=== PATIENT | female | born 1945 | race Caucasian/White ===

== ENCOUNTER → 2016-11-21 | Outpatient (REF) | payer MEDICARE, OTHER ==
[2016-11-21 14:58] LABS: MICROSCOPIC INDICATED? MAN YES (NO)
[2016-11-21 15:00] LABS: BACTERIA, URINE NONE SEEN; CALCIUM OXALATE CRYSTALS,URINE SMALL AMOUNT /hpf; MICROSCOPIC EXAM UNSPUN; RBC, URINE 0-1 /hpf (0-3); SQUAMOUS EPITHELIAL CELL URINE NONE SEEN /hpf (SMALL AMT); WBC, URINE 0-1 /hpf (0-3)
[2016-11-21 15:07] LABS: HYALINE CAST, URINE NONE SEEN /lpf (0-1)
== END | disposition home or self-care (01) ==
LOC: M SFHCPLAZ 10:53
PROVIDERS: ATTEND Internal Medicine
DX: M81.0 Age-related osteoporosis without current pathological fracture (principal)

== ENCOUNTER → 2016-11-22 | Outpatient (REF) | payer MEDICARE, OTHER ==
[2016-11-22 12:24] LABS: ALBUMIN 3.9 GM/DL (3.2-5.2); ALBUMIN/GLOBULIN RATIO 1.05 (1.00-1.93); ALKALINE PHOSPHATASE 91 U/L (45-117); ALT/SGPT 37 U/L (12-78); ANION GAP 9 MEQ/L (8-16); AST/SGOT 36 U/L (15-37); BILIRUBIN,TOTAL 0.8 MG/DL (0.2-1.0); BLOOD UREA NITROGEN 16 MG/DL (7-18); CALCIUM LEVEL 8.7 MG/DL (8.8-10.2); CARBON DIOXIDE LEVEL 30 MEQ/L (21-32); CHLORIDE LEVEL 104 MEQ/L (98-107); CHOLESTEROL LEVEL 202 MG/DL (<200); CREATININE FOR GFR 0.82 MG/DL (0.55-1.02); GLOMERULAR FILTRATION RATE > 60.0 (>39); GLUCOSE, FASTING 79 MG/DL (83-110); POTASSIUM SERUM 4.1 MEQ/L (3.5-5.1); SODIUM LEVEL 143 MEQ/L (136-145); TOTAL PROTEIN 7.6 GM/DL (6.4-8.2); TRIGLYCERIDES LEVEL 56 MG/DL (<150)
== END ==
LOC: M LABDRAW1 11:31
PROVIDERS: ATTEND Internal Medicine
DX: M81.0 Age-related osteoporosis without current pathological fracture (principal); E78.00 Pure hypercholesterolemia, unspecified; E55.9 Vitamin D deficiency, unspecified

== ENCOUNTER → 2017-01-20 | Outpatient (REF) | payer MEDICARE, OTHER | LOC: M LAB REF 16:33 | PROVIDERS: ATTEND Physician Assistant | DX: N39.8 Other specified disorders of urinary system (principal); Z79.899 Other long term (current) drug therapy ==

== ENCOUNTER → 2017-04-21 | Outpatient (REF) | payer MEDICARE, OTHER ==
[~2017-04-21] MED LIST: CIPR500T3 PO; ESTR1CRE
== END ==
LOC: M SFHCPLAZ 15:22
PROVIDERS: ATTEND Physician Assistant Medical
DX: B37.3 Candidiasis of vulva and vagina (principal)
CPT/HCPCS: 87070; 87205; G0463

== ENCOUNTER 2017-05-11 09:26 | Emergency (ER) | payer MEDICARE, OTHER ==
[~2017-05-11] VITALS: Ht 157.5 cm; Wt 54.5 kg
[2017-05-11] MEDS ORDERED: ESTR1CRE (09:45)
--- NOTE | 2017-05-11 11:17 | REP ---
CT Head without contrast HISTORY: Ataxia COMPARISON: None Areas of decreased attenuation are present in the periventricular and subcortical white matter. This represents small-vessel ischemic disease. There is no intraparenchymal hemorrhage, acute infarct, mass or midline shift. The ventricular system and cortical sulci are dilated consistent with minimal volume loss. There is no extra cerebral collection. There is no fracture. The visualized sinuses are clear. IMPRESSION: 1. Small vessel ischemic disease. 2. Minimal volume loss. Signed by Osvaldo Arceo MD 05/11/2017 11:09 A
[2017-05-11 11:22] LABS: EOS % 0.7 % (0.0-3.0); LARGE UNSTAINED CELL # 0.1 K/mm3 (0.0-0.4); LYMPH # 1.2 K/mm3 (1.5-4.5); MEAN CORPUSCULAR HEMOGLOBIN 32.6 pg (27.0-33.0); MEAN CORPUSCULAR HGB CONC 34.2 g/dl (32.0-36.5); MEAN CORPUSCULAR VOLUME 95.3 fl (80.0-96.0); MONO # 0.2 K/mm3 (0.0-0.8); MONO % 4.6 % (0.0-5.0); NEUTROPHILS # 2.9 K/mm3 (1.8-7.7); NEUTROPHILS % 64.7 % (36.0-66.0); PLATELET COUNT, AUTOMATED 211 k/mm3 (150-450); RED CELL DISTRIBUTION WIDTH 12.1 % (11.5-14.5); WHITE BLOOD COUNT 4.5 K/mm3 (4.0-10.0)
[2017-05-11 11:37] LABS: ANION GAP 6 MEQ/L (8-16); BLOOD UREA NITROGEN 11 MG/DL (7-18); CALCIUM LEVEL 9.2 MG/DL (8.8-10.2); CARBON DIOXIDE LEVEL 29 MEQ/L (21-32); CHLORIDE LEVEL 107 MEQ/L (98-107); CREATININE FOR GFR 0.73 MG/DL (0.55-1.02); GLOMERULAR FILTRATION RATE > 60.0 (>39); GLUCOSE, FASTING 87 MG/DL (83-110); POTASSIUM SERUM 4.3 MEQ/L (3.5-5.1); SODIUM LEVEL 142 MEQ/L (136-145)
[2017-05-11 12:13] VITALS: BP 139/71
[2017-05-11] MEDS ORDERED: CIPR500T3 PO (12:34)
--- NOTE | 2017-05-11 21:38 | ECGEPIP ---
Stationary ECG Study [place] - ED Test Date: 2017-05-11 Pat Name: BRI STEPHENSON Department: Room: - Gender: F [employer] Hand: antonella : 1945 Requested By: SHAYY ARGUELLO Order Number: [id number] Reading MD: Mariela Jimenez Measurements Intervals [place] Rate: 82 P: 75 AK: 146 QRS: 63 QRSD: 104 T: 89 QT: 383 QTc: 449 Interpretive Statements SINUS RHYTHM [id number] ABNORMALITY NO PRIOR FOR COMPARISON Electronically Signed On 05-11-2017 21:38:30 EDT by Mariela Jimenez
== END 2017-05-11 12:42 | disposition home or self-care (01) ==
LOC: M ED 09:26
DX: N39.0 Urinary tract infection, site not specified (principal); R09.81 Nasal congestion

== ENCOUNTER → 2018-07-11 | Outpatient (REF) | payer MEDICARE, OTHER ==
[2018-07-11 16:56] LABS: ALBUMIN/GLOBULIN RATIO 1.18 (1.00-1.93); ALKALINE PHOSPHATASE 89 U/L (45-117); ALT/SGPT 39 U/L (12-78); ANION GAP 5 MEQ/L (8-16); AST/SGOT 29 U/L (7-37); BILIRUBIN,TOTAL 0.7 MG/DL (0.2-1.0); BLOOD UREA NITROGEN 14 MG/DL (7-18); CALCIUM LEVEL 9.2 MG/DL (8.8-10.2); CARBON DIOXIDE LEVEL 30 MEQ/L (21-32); CHLORIDE LEVEL 106 MEQ/L (98-107); CHOLESTEROL LEVEL 228 MG/DL (<200); CREATININE FOR GFR 0.69 MG/DL (0.55-1.30); GLOMERULAR FILTRATION RATE > 60.0 (>39); GLUCOSE, FASTING 75 MG/DL (70-100); HDL CHOLESTEROL 51 MG/DL (>40); LDL CHOLESTEROL 159 MG/DL (<100); NON-HDL-C 177 MG/DL; POTASSIUM SERUM 4.3 MEQ/L (3.5-5.1); SODIUM LEVEL 141 MEQ/L (136-145); TOTAL PROTEIN 7.4 GM/DL (6.4-8.2); TRIGLYCERIDES LEVEL 90 MG/DL (<150)
== END ==
LOC: M SFHCPLAZ 13:38
DX: E78.00 Pure hypercholesterolemia, unspecified (principal)
CPT/HCPCS: 80053

== ENCOUNTER → 2018-11-23 | Outpatient (REF) | payer MEDICARE, OTHER | LOC: M SFHCPLAZ 09:48 | PROVIDERS: ATTEND Internal Medicine | DX: L65.9 Nonscarring hair loss, unspecified (principal) | CPT/HCPCS: 36415; 84481; G0463 ==

== ENCOUNTER 2019-03-05 11:31 | Emergency (ER) | payer MEDICARE, OTHER ==
[~2019-03-05] VITALS: Ht 157.5 cm; Wt 53.6 kg
[2019-03-05 12:27] LABS: BASO % 0.3 % (0.0-1.0); EOS # 0.1 10^3/uL (0.0-0.50); EOS % 0.5 % (0.0-3.0); HEMATOCRIT 44.8 % (36.0-47.0); HEMOGLOBIN 14.9 g/dl (12.0-15.5); LYMPH # 1.2 10^3/uL (1.5-4.5); LYMPH % 9.6 % (24.0-44.0); MEAN CORPUSCULAR HGB CONC 33.3 g/dl (32.0-36.5); MEAN CORPUSCULAR VOLUME 96.3 fl (80.0-96.0); MONO % 7.9 % (0.0-5.0); NEUTROPHILS # 10.1 10^3/uL (1.8-7.7); NEUTROPHILS % 81.5 % (36.0-66.0); PLATELET COUNT, AUTOMATED 242 10^3/uL (150-450); RED BLOOD COUNT 4.65 10^6/uL (4.00-5.40); WHITE BLOOD COUNT 12.4 10^3/uL (4.0-10.0)
[2019-03-05] MEDS ORDERED: NS 1,000 ML IV ONE (12:45)
[2019-03-05 12:53] LABS: ALBUMIN 3.8 GM/DL (3.2-5.2); BILIRUBIN,DIRECT 0.2 MG/DL (0.0-0.2); BILIRUBIN,TOTAL 1.1 MG/DL (0.2-1.0); TOTAL PROTEIN 7.7 GM/DL (6.4-8.2)
[2019-03-05] MEDS ORDERED: ISOVUE-370 76% 100ML VIAL (Q9967) As Ordered ONE (12:53)
--- NOTE | 2019-03-05 13:38 | REP ---
Clinical: Lower abdominal pain with history of diverticulitis. Technique: Axial contrast enhanced images from the lung bases to the pubic symphysis with coronal and sagittal re-formations using 100 ml Isovue 370 intravenous contrast material. Comparison: 02/24/2016. Findings: The large right subdiaphragmatic suprahepatic fluid collection which elevates the right hemidiaphragm and demonstrates chronic calcifications remains essentially unchanged. Small simple hepatic cysts measuring up to approximately 1 cm are also identified and stable. Spleen, pancreas, gallbladder, bilateral adrenal glands are normal. Kidneys demonstrate cortical atrophic changes along with few scattered simple appearing cysts and 5 mm nonobstructing right renal calculus. Evaluation of the enteric system suggests mucosal thickening and pericolonic inflammatory changes surrounding portions of the colon which may reflect a mild colitis. There is no evidence for bowel obstruction or focal diverticulitis noted. Scattered colonic diverticula are identified. Evaluation of the pelvis demonstrates normal bladder along with prior hysterectomy and pessary in stable position. No pelvic fluid or ascites. No free air. No adenopathy. Atherosclerotic changes to the aorta and vasculature noted without aneurysm or dissection. Surrounding musculoskeletal structures demonstrate degenerative changes without focal osseous abnormality. 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 Impression: 1. Possible mild colitis without bowel obstruction, perforation, ascites or drainable collection/abscess. 2. Scattered colonic diverticula without acute diverticulitis. 3. Chronic stable changes including hepatic and renal cysts, renal age-related cortical atrophic changes, large subdiaphragmatic fluid collection with chronic calcification, and congenital anomalous pulmonary vessel. Electronically Signed by Jesus Berry MD 03/05/2019 01:29 P
[2019-03-05 14:32] VITALS: BP 149/74
[2019-03-05] MEDS ORDERED: VANC125C3 PO (15:53)
[2019-03-05] MEDS ORDERED: VANCOMYCIN ORAL SOL 250MG/5ML ORAL SYRINGE PO SCH (18:00)
== END 2019-03-05 16:38 | disposition home or self-care (01) ==
LOC: M ED 11:31
DX: A04.72 Enterocolitis due to Clostridium difficile, not specified as recurrent (principal); K57.90 Diverticulosis of intestine, part unspecified, without perforation or abscess without bleeding; N20.0 Calculus of kidney; F41.9 Anxiety disorder, unspecified; M81.0 Age-related osteoporosis without current pathological fracture; Z79.818 Long term (current) use of other agents affecting estrogen receptors and estrogen levels; Z88.0 Allergy status to penicillin; Z88.1 Allergy status to other antibiotic agents; Z88.2 Allergy status to sulfonamides; Z88.8 Allergy status to other drugs, medicaments and biological substances
CPT/HCPCS: 74177; 80047; 80076; 81001; 83605; 83690; 85025; 87086; 87507; 96360; 96361; 99284; Q9967

== ENCOUNTER → 2020-06-23 | Outpatient (CLI) | payer MEDICARE, OTHER ==
[~2020-06-23] MED LIST changes: +VANC125C3 PO
[2020-06-23 18:18] LABS: FREE T3 2.5 PG/ML (2.2-4.0); FREE T4 1.28 NG/DL (0.76-1.46); THYROID STIMULATING HORMONE 1.31 uIU/ML (0.358-3.740)
[2020-06-24 09:14] LABS: TOTAL T3 91.8 NG/DL (60.0-181.0)
== END ==
LOC: M PLALAB 14:36
PROVIDERS: ATTEND Internal Medicine
DX: E78.00 Pure hypercholesterolemia, unspecified (principal)
CPT/HCPCS: 36415; 84439; 84443; 84481; G0463

== ENCOUNTER → 2021-03-24 | Outpatient (REF) | payer MEDICARE, OTHER | LOC: M PLALAB 13:17 | PROVIDERS: ATTEND Internal Medicine | DX: E55.9 Vitamin D deficiency, unspecified (principal) | CPT/HCPCS: 36415; 82306; G0463 ==

== ENCOUNTER → 2021-06-04 | Outpatient (CLI) | payer MEDICARE, OTHER ==
[~2021-06-04] MED LIST changes: +GASTROGRAFIN SOLUTION 30ML (Q9963) ONE; +ISOVUE-370 76% 100ML VIAL ONE
--- NOTE | 2021-06-04 10:36 | REP ---
INDICATION: ABD LIPOMA, SURVEILLANCE OF PANCREATIC CYST. COMPARISON: 07/01/2020 TECHNIQUE: Axial contrast-enhanced images from the lung bases to the pubic symphysis using oral and 100 cc Isovue 370 intravenous contrast material. Precontrast and delayed images of the abdomen obtained along with coronal and sagittal reformations. This CT examination was performed using the following dose reduction techniques: Automated exposure control, adjustment of mA and/or kv according to the patient's size, and the use of iterative reconstruction technique. FINDINGS: Large right posterior hepatic cyst with adjacent calcifications along the liver-cyst border remains unchanged few smaller intrahepatic cysts in the left lobe are also identified as well as 1.2 cm hyperenhancing lesion in the right lobe consistent with hemangioma and stable. Spleen, gallbladder, and bilateral adrenal glands are normal. Kidneys demonstrate stable hypodensities suggesting scattered cysts. Pancreas demonstrates stable 1 cm cyst at the pancreatic neck which is unchanged. There is a large duodenal diverticulum adjacent to the head of the pancreas which remains stable. The enteric system is without obstruction or acute inflammatory process. Scattered colonic and sigmoid diverticula noted without acute diverticulitis.. Pelvis demonstrates normal bladder and evidence for prior hysterectomy with pessary in place. No ascites. No free air. No intraperitoneal or retroperitoneal adenopathy. Abdominal aorta and vasculature without aneurysm or dissection. Musculoskeletal structures demonstrate age-related osteopenia and degenerative changes without acute osseous abnormality. IMPRESSION: 1. 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 2. Stable pancreatic and renal cysts. 3. Further chronic nonacute findings as described above. 4. No acute abdominopelvic pathology appreciated. <Electronically signed by Jesus Berry > 06/04/21 [id number]
== END ==
LOC: M PLAIMG 08:01
PROVIDERS: ATTEND Nurse Practitioner Adult Health
DX: D17.1 Benign lipomatous neoplasm of skin and subcutaneous tissue of trunk (principal); K76.89 Other specified diseases of liver; K86.2 Cyst of pancreas; N28.1 Cyst of kidney, acquired
CPT/HCPCS: 74178; Q9963; Q9967

== ENCOUNTER → 2022-06-01 | Outpatient (REF) | payer MEDICARE, OTHER ==
[~2022-06-01] MED LIST changes: -GASTROGRAFIN SOLUTION 30ML (Q9963) ONE; -ISOVUE-370 76% 100ML VIAL ONE
[2022-06-01 14:08] LABS: APPEARANCE, URINE MANUAL CLEAR (CLEAR); COLOR, URINE MANUAL YELLOW (YELLOW)
[2022-06-01 14:09] LABS: BILIRUBIN, URINE MANUAL NEGATIVE (NEGATIVE); BLOOD URINE MANUAL POSITIVE (NEGATIVE); GLUCOSE, URINE (UA) MANUAL NEGATIVE (NEGATIVE); KETONE, URINE MANUAL NEGATIVE (NEGATIVE); LEUKOCYTE ESTERASE, URINE MAN NEGATIVE (NEGATIVE); NITRITE, URINE MANUAL NEGATIVE (NEGATIVE); PROTEIN, URINE MANUAL NEGATIVE (NEGATIVE); UROBILINOGEN, URINE MANUAL NORMAL (NORMAL)
[2022-06-01 14:16] LABS: BACTERIA, URINE NONE SEEN; HYALINE CAST, URINE NONE SEEN /lpf (0-1); RBC, URINE NONE SEEN /hpf (0-3); SQUAMOUS EPITHELIAL CELL URINE NONE SEEN /hpf (SMALL AMT); WBC, URINE 0-1 /hpf (0-3)
== END ==
LOC: M SFHCPLAZ 12:55
PROVIDERS: ATTEND Internal Medicine Hematology
DX: N39.0 Urinary tract infection, site not specified (principal)

== ENCOUNTER → 2023-03-01 | Outpatient (CLI) | payer MEDICARE, OTHER ==
[2023-03-01 13:06] LABS: LIPASE 44 U/L (12-53)
[2023-03-01 13:08] LABS: ALBUMIN 3.7 G/DL (3.2-5.2); ALKALINE PHOSPHATASE 92 U/L (46-116); ALT/SGPT 34 U/L (7.0-40); AST/SGOT 38 U/L (<34); BLOOD UREA NITROGEN 15 MG/DL (9-23); CALCIUM LEVEL 8.8 MG/DL (8.3-10.6); CARBON DIOXIDE LEVEL 28 MMOL/L (20-31); CHLORIDE LEVEL 102 MMOL/L (98-107); CREATININE FOR GFR 0.66 MG/DL (0.55-1.30); GLOMERULAR FILTRATION RATE > 60.0 (>39); GLUCOSE, FASTING 87 MG/DL (74-106); POTASSIUM SERUM 3.8 MMOL/L (3.5-5.1); SODIUM LEVEL 135 MMOL/L (136-145); TOTAL PROTEIN 7.2 G/DL (5.7-8.2)
[2023-03-01 13:11] LABS: BASO % 0.3 % (0.0-1.0); EOS % 0.2 % (0.0-3.0); LYMPH # 1.6 10^3/uL (1.5-5.0); LYMPH % 13.8 % (24.0-44.0); MEAN CORPUSCULAR HEMOGLOBIN 31.5 pg (27.0-33.0); MEAN CORPUSCULAR HGB CONC 31.8 g/dl (32.0-36.5); MEAN CORPUSCULAR VOLUME 98.9 fl (80.0-96.0); MONO # 0.7 10^3/uL (0.0-0.8); MONO % 5.6 % (2.0-8.0); NEUTROPHILS # 9.5 10^3/uL (1.5-8.5); NEUTROPHILS % 79.8 % (36.0-66.0); PLATELET COUNT, AUTOMATED 242 10^3/uL (150-450); RED BLOOD COUNT 4.45 10^6/uL (4.00-5.40); WHITE BLOOD COUNT 11.9 10^3/uL (4.0-10.0)
[2023-03-01 13:40] LABS: ERYTHROCYTE SEDIMENTATION RATE 60 mm/hr (0-30)
[2023-03-01 15:07] LABS: APPEARANCE, URINE HAZY (CLEAR); BACTERIA, URINE AUTO 1+ (NEGATIVE); BILIRUBIN, URINE AUTO NEGATIVE (NEGATIVE); BLOOD, URINE BLOOD 2+ (NEGATIVE); COLOR, URINE YELLOW (YELLOW); GLUCOSE, URINE (UA) AUTO NEGATIVE (NEGATIVE); KETONE, URINE AUTO TRACE mg/dL (NEGATIVE); LEUKOCYTE ESTERASE, URINE AUTO NEGATIVE (NEGATIVE); MUCUS, URINE MODERATE (NEGATIVE); NITRITE, URINE AUTO NEGATIVE (NEGATIVE); PROTEIN, URINE AUTO NEGATIVE (NEGATIVE); RBC, URINE AUTO 2 /HPF (0-3); SPECIFIC GRAVITY URINE AUTO 1.019 (1.002-1.035); SQUAMOUS EPITHELIAL CELL UR AU 2 /HPF (0-6); UROBILINOGEN, URINE AUTO 0.2 mg/dL (0.0-2.0); WBC, URINE AUTO 7 /HPF (0-3)
== END ==
LOC: M PLALAB 11:37
PROVIDERS: ATTEND Physician Assistant
DX: R10.30 Lower abdominal pain, unspecified (principal); R82.90 Unspecified abnormal findings in urine; Z87.19 Personal history of other diseases of the digestive system

== ENCOUNTER → 2023-03-09 | Outpatient (CLI) | payer MEDICARE, OTHER ==
[2023-03-09 14:12] LABS: BASO # 0.1 10^3/uL (0.0-0.2); BASO % 0.9 % (0.0-1.0); EOS % 0.5 % (0.0-3.0); HEMATOCRIT 45.3 % (36.0-47.0); HEMOGLOBIN 14.6 g/dl (12.0-15.5); LYMPH # 1.8 10^3/uL (1.5-5.0); LYMPH % 20.9 % (24.0-44.0); MEAN CORPUSCULAR HEMOGLOBIN 31.2 pg (27.0-33.0); MEAN CORPUSCULAR HGB CONC 32.2 g/dl (32.0-36.5); MEAN CORPUSCULAR VOLUME 96.8 fl (80.0-96.0); MONO % 10.8 % (2.0-8.0); NEUTROPHILS # 5.8 10^3/uL (1.5-8.5); NEUTROPHILS % 66.2 % (36.0-66.0); PLATELET COUNT, AUTOMATED 307 10^3/uL (150-450); RED BLOOD COUNT 4.68 10^6/uL (4.00-5.40); WHITE BLOOD COUNT 8.8 10^3/uL (4.0-10.0)
[2023-03-09 14:18] LABS: ALBUMIN 3.6 G/DL (3.2-5.2); BILIRUBIN,DIRECT 0.1 MG/DL (<0.4); BILIRUBIN,TOTAL 0.5 MG/DL (0.3-1.2); TOTAL PROTEIN 6.8 G/DL (5.7-8.2)
== END ==
LOC: M PLALAB 09:52
PROVIDERS: ATTEND Internal Medicine Hematology
DX: R74.8 Abnormal levels of other serum enzymes (principal)

== ENCOUNTER → 2023-03-14 | Outpatient (CLI) | payer MEDICARE, OTHER ==
[2023-03-14 15:19] LABS: BLOOD UREA NITROGEN 17 MG/DL (9-23); CALCIUM LEVEL 8.5 MG/DL (8.3-10.6); CARBON DIOXIDE LEVEL 32 MMOL/L (20-31); CHLORIDE LEVEL 105 MMOL/L (98-107); CHOLESTEROL LEVEL 189 MG/DL (<200); CHOLESTEROL RISK RATIO 4.83 (<5); GLOMERULAR FILTRATION RATE > 60.0 (>39); GLUCOSE, FASTING 99 MG/DL (74-106); HDL CHOLESTEROL 39.1 MG/DL (>40); LDL CHOLESTEROL 130.5 MG/DL (<100); NON-HDL-C 149.9 MG/DL; POTASSIUM SERUM 4.3 MMOL/L (3.5-5.1); SODIUM LEVEL 142 MMOL/L (136-145); TRIGLYCERIDES LEVEL 97 MG/DL (<150)
== END ==
LOC: M PLALAB 09:26
PROVIDERS: ATTEND Internal Medicine Hematology
DX: R60.0 Localized edema (principal); E78.5 Hyperlipidemia, unspecified

== ENCOUNTER → 2023-03-29 | Outpatient (CLI) | payer MEDICARE, OTHER ==
[2023-03-29 18:24] LABS: BASO # 0.1 10^3/uL (0.0-0.2); BASO % 0.9 % (0.0-1.0); EOS # 0.1 10^3/uL (0.0-0.5); EOS % 1.5 % (0.0-3.0); HEMATOCRIT 42.9 % (36.0-47.0); HEMOGLOBIN 14.1 g/dl (12.0-15.5); LYMPH # 2.2 10^3/uL (1.5-5.0); LYMPH % 33.2 % (24.0-44.0); MEAN CORPUSCULAR HGB CONC 32.9 g/dl (32.0-36.5); MEAN CORPUSCULAR VOLUME 97.5 fl (80.0-96.0); MONO # 0.5 10^3/uL (0.0-0.8); NEUTROPHILS # 3.8 10^3/uL (1.5-8.5); NEUTROPHILS % 56.1 % (36.0-66.0); PLATELET COUNT, AUTOMATED 239 10^3/uL (150-450); WHITE BLOOD COUNT 6.8 10^3/uL (4.0-10.0)
[2023-03-29 18:47] LABS: ERYTHROCYTE SEDIMENTATION RATE 63 mm/hr (0-30)
[2023-03-29 18:52] LABS: C REACTIVE PROTEIN QUANTITATIV < 0.40 MG/DL (<1.0)
[2023-03-29 18:57] LABS: THYROID STIMULATING HORMONE 2.662 uIU/ML (0.55-4.78); TOTAL 25(OH) VITAMIN D 82.3 NG/ML (20.0-100.0)
[2023-03-29 18:58] LABS: VITAMIN B12 LEVEL 360 PG/ML (211-911)
[2023-04-05 19:10] LABS: FREE KAPPA LIGHT CHAINS SERUM 19.5 mg/L (3.3-19.4); FREE LAMBDA LIGHT CHAINS SERUM 11.5 mg/L (5.7-26.3); VITAMIN A, RETINOL LEVEL 36.5 ug/dL (22.0-69.5); VITAMIN B1 LEVEL WHOLE BLOOD 136.2 nmol/L (66.5-200.0); VITAMIN B6,PYRIDOXAL PHOSPHATE 6.9 ug/L (3.4-65.2)
== END ==
LOC: M PLALAB 16:56
PROVIDERS: ATTEND Internal Medicine Hematology
DX: M81.0 Age-related osteoporosis without current pathological fracture (principal); R00.2 Palpitations; E78.00 Pure hypercholesterolemia, unspecified

== ENCOUNTER → 2023-04-06 | Outpatient (REF) | payer MEDICARE, OTHER | LOC: M LAB REF 11:49 | PROVIDERS: ATTEND Internal Medicine Hematology | DX: R00.2 Palpitations (principal) ==

== ENCOUNTER → 2023-07-31 | Outpatient (REF) | payer MEDICARE, OTHER | LOC: M SFHCCLAY 15:04 | PROVIDERS: ATTEND Physician Assistant | DX: J02.9 Acute pharyngitis, unspecified (principal) ==

== ENCOUNTER → 2023-08-14 | Outpatient (CLI) | payer MEDICARE, OTHER | LOC: M RAD 11:08 | PROVIDERS: ATTEND Internal Medicine Hematology | DX: I77.9 Disorder of arteries and arterioles, unspecified (principal); I99.9 Unspecified disorder of circulatory system ==

== ENCOUNTER → 2023-09-12 | Outpatient (CLI) | payer MEDICARE, OTHER ==
[2023-09-12 10:15] LABS: HEMATOCRIT 44.8 % (36.0-47.0); HEMOGLOBIN 14.9 g/dl (12.0-15.5); MEAN CORPUSCULAR HGB CONC 33.3 g/dl (32.0-36.5); MEAN CORPUSCULAR VOLUME 96.3 fl (80.0-96.0); PLATELET COUNT, AUTOMATED 238 10^3/uL (150-450); RED BLOOD COUNT 4.65 10^6/uL (4.00-5.40); WHITE BLOOD COUNT 7.7 10^3/uL (4.0-10.0)
[2023-09-12 10:26] LABS: ERYTHROCYTE SEDIMENTATION RATE 48 mm/hr (0-30)
[2023-09-12 10:40] LABS: C REACTIVE PROTEIN QUANTITATIV < 0.40 MG/DL (<1.0)
[2023-09-12 10:40] LABS: CREATININE, URINE 189.6 MG/DL
[2023-09-12 10:45] LABS: ALBUMIN 3.8 G/DL (3.2-5.2); ALKALINE PHOSPHATASE 90 U/L (46-116); ALT/SGPT 48 U/L (7.0-40); AST/SGOT 45 U/L (<34); BILIRUBIN,TOTAL 1.2 MG/DL (0.3-1.2); BLOOD UREA NITROGEN 20 MG/DL (9-23); CARBON DIOXIDE LEVEL 29 MMOL/L (20-31); CHLORIDE LEVEL 104 MMOL/L (98-107); CHOLESTEROL LEVEL 152 MG/DL (<200); CHOLESTEROL RISK RATIO 2.85 (<5); CREATININE FOR GFR 0.68 MG/DL (0.55-1.30); FREE T4 1.22 NG/DL (0.89-1.76); GLOMERULAR FILTRATION RATE > 60.0 (>39); GLUCOSE, FASTING 83 MG/DL (74-106); HDL CHOLESTEROL 53.3 MG/DL (>40); LDL CHOLESTEROL 84.9 MG/DL (<100); NON-HDL-C 98.7 MG/DL; POTASSIUM SERUM 4.4 MMOL/L (3.5-5.1); SODIUM LEVEL 138 MMOL/L (136-145); THYROID STIMULATING HORMONE 2.188 uIU/ML (0.55-4.78); TOTAL 25(OH) VITAMIN D 86.5 NG/ML (20.0-100.0); TOTAL PROTEIN 7.4 G/DL (5.7-8.2); TRIGLYCERIDES LEVEL 69 MG/DL (<150); VITAMIN B12 LEVEL 799 PG/ML (211-911)
[2023-09-20 16:08] LABS: COPPER PLASMA 109 ug/dL (80-158); FREE KAPPA LIGHT CHAINS SERUM 22.5 mg/L (3.3-19.4); FREE LAMBDA LIGHT CHAINS SERUM 13.1 mg/L (5.7-26.3); INSULIN LEVEL 3.8 uIU/mL (2.6-24.9); KAPPA/LAMBDA RATIO SERUM 1.72 (0.26-1.65)
== END ==
LOC: M LAB 09:27
PROVIDERS: ATTEND Internal Medicine Hematology
DX: E78.00 Pure hypercholesterolemia, unspecified (principal); D47.2 Monoclonal gammopathy; Z79.899 Other long term (current) drug therapy

== ENCOUNTER → 2023-10-10 | Outpatient (CLI) | payer MEDICARE, OTHER ==
[2023-10-10 12:43] LABS: LDH LACTATE DEHYDROGENASE 196 U/L (120-246)
[2023-10-10 12:45] LABS: ALBUMIN 3.7 G/DL (3.2-5.2); ALKALINE PHOSPHATASE 92 U/L (46-116); ALT/SGPT 47 U/L (7.0-40); AST/SGOT 50 U/L (<34); BLOOD UREA NITROGEN 15 MG/DL (9-23); CARBON DIOXIDE LEVEL 32 MMOL/L (20-31); CHLORIDE LEVEL 106 MMOL/L (98-107); CHOLESTEROL LEVEL 150 MG/DL (<200); CHOLESTEROL RISK RATIO 2.51 (<5); CREATININE FOR GFR 0.69 MG/DL (0.55-1.30); GLOMERULAR FILTRATION RATE > 60.0 (>39); GLUCOSE, FASTING 87 MG/DL (74-106); HDL CHOLESTEROL 59.6 MG/DL (>40); LDL CHOLESTEROL 77.4 MG/DL (<100); NON-HDL-C 90.4 MG/DL; POTASSIUM SERUM 4.3 MMOL/L (3.5-5.1); SODIUM LEVEL 143 MMOL/L (136-145); TOTAL PROTEIN 7.2 G/DL (5.7-8.2); TRIGLYCERIDES LEVEL 65 MG/DL (<150)
== END ==
LOC: M LAB 11:31
PROVIDERS: ATTEND Internal Medicine Hematology
DX: E78.00 Pure hypercholesterolemia, unspecified (principal)

== ENCOUNTER → 2024-01-19 | Outpatient (REF) | payer MEDICARE, OTHER ==
[2024-01-19 17:22] LABS: BASO # 0.1 10^3/uL (0.0-0.2); BASO % 0.9 % (0.0-1.0); EOS # 0.1 10^3/uL (0.0-0.5); EOS % 1.3 % (0.0-3.0); HEMOGLOBIN 14.7 g/dl (12.0-15.5); LYMPH # 1.5 10^3/uL (1.5-5.0); MEAN CORPUSCULAR HEMOGLOBIN 32.3 pg (27.0-33.0); MEAN CORPUSCULAR HGB CONC 33.4 g/dl (32.0-36.5); MEAN CORPUSCULAR VOLUME 96.7 fl (80.0-96.0); MONO # 0.5 10^3/uL (0.0-0.8); MONO % 6.6 % (2.0-8.0); NEUTROPHILS # 4.8 10^3/uL (1.5-8.5); NEUTROPHILS % 68.9 % (36.0-66.0); PLATELET COUNT, AUTOMATED 227 10^3/uL (150-450); RED BLOOD COUNT 4.55 10^6/uL (4.00-5.40)
[2024-01-19 17:39] LABS: HEMOGLOBIN A1c 4.9 % (4.0-6.0)
[2024-01-19 17:53] LABS: CREATININE, URINE 98.3 MG/DL; MAU/CREAT RATIO 53.9 MCG/MG (0.0-30.0)
[2024-01-19 17:54] LABS: ALBUMIN 3.9 G/DL (3.2-5.2); ALKALINE PHOSPHATASE 87 U/L (46-116); ALT/SGPT 26 U/L (7.0-40); AST/SGOT 36 U/L (<34); BILIRUBIN,TOTAL 1.1 MG/DL (0.3-1.2); BLOOD UREA NITROGEN 18 MG/DL (9-23); C REACTIVE PROTEIN QUANTITATIV < 0.40 MG/DL (<1.0); CARBON DIOXIDE LEVEL 31 MMOL/L (20-31); CHLORIDE LEVEL 107 MMOL/L (98-107); CHOLESTEROL LEVEL 205 MG/DL (<200); CREATININE FOR GFR 0.73 MG/DL (0.55-1.30); GLOMERULAR FILTRATION RATE > 60.0 (>39); GLUCOSE, FASTING 88 MG/DL (74-106); HDL CHOLESTEROL 56.8 MG/DL (>40); LDL CHOLESTEROL 133.4 MG/DL (<100); NON-HDL-C 148.2 MG/DL; POTASSIUM SERUM 4.3 MMOL/L (3.5-5.1); SODIUM LEVEL 142 MMOL/L (136-145); TOTAL PROTEIN 7.2 G/DL (5.7-8.2); TRIGLYCERIDES LEVEL 74 MG/DL (<150)
[2024-01-19 17:57] LABS: FREE T4 1.38 NG/DL (0.89-1.76); THYROID STIMULATING HORMONE 2.131 uIU/ML (0.55-4.78)
[2024-01-19 17:58] LABS: TOTAL 25(OH) VITAMIN D 76.6 NG/ML (20.0-100.0); VITAMIN B12 LEVEL 637 PG/ML (211-911)
== END ==
LOC: M SFHCPLAZ 11:12
PROVIDERS: ATTEND Internal Medicine Hematology
DX: E78.00 Pure hypercholesterolemia, unspecified (principal); Z79.899 Other long term (current) drug therapy

== ENCOUNTER → 2024-01-31 | Outpatient (CLI) | payer MEDICARE, OTHER | LOC: M RAD 09:44 | PROVIDERS: ATTEND Internal Medicine Hematology | DX: R22.1 Localized swelling, mass and lump, neck (principal) ==

== ENCOUNTER → 2024-02-20 | Outpatient (REF) | payer MEDICARE, OTHER ==
[~2024-02-20] MED LIST changes: +LEVO1TAB40 PO; +METR-265 PO
== END ==
LOC: M SFHCPLAZ 15:08
PROVIDERS: ATTEND Physician Assistant Medical
DX: R30.0 Dysuria (principal)

== ENCOUNTER 2024-02-22 11:57 | Emergency (ER) | payer MEDICARE, OTHER ==
[~2024-02-22] VITALS: Ht 157.5 cm; Wt 47.9 kg
[~2024-02-22 11:57] MED LIST changes: -LEVO1TAB40 PO; -METR-265 PO
[2024-02-22 13:41] LABS: BASO # 0.1 10^3/uL (0.0-0.2); BASO % 0.7 % (0.0-1.0); EOS % 0.5 % (0.0-3.0); HEMATOCRIT 43.4 % (36.0-47.0); HEMOGLOBIN 14.6 g/dl (12.0-15.5); LYMPH # 1.9 10^3/uL (1.5-5.0); LYMPH % 21.6 % (24.0-44.0); MEAN CORPUSCULAR HEMOGLOBIN 32.7 pg (27.0-33.0); MEAN CORPUSCULAR HGB CONC 33.6 g/dl (32.0-36.5); MEAN CORPUSCULAR VOLUME 97.1 fl (80.0-96.0); MONO # 0.7 10^3/uL (0.0-0.8); MONO % 7.6 % (2.0-8.0); NEUTROPHILS # 6.2 10^3/uL (1.5-8.5); NEUTROPHILS % 69.4 % (36.0-66.0); PLATELET COUNT, AUTOMATED 232 10^3/uL (150-450); RED BLOOD COUNT 4.47 10^6/uL (4.00-5.40); WHITE BLOOD COUNT 8.9 10^3/uL (4.0-10.0)
[2024-02-22 14:09] LABS: LIPASE 66 U/L (12-53)
[2024-02-22 14:10] LABS: ALBUMIN 3.7 G/DL (3.2-5.2); ALKALINE PHOSPHATASE 96 U/L (46-116); ALT/SGPT 24 U/L (7.0-40); AST/SGOT 31 U/L (<34); BILIRUBIN,DIRECT 0.5 MG/DL (<0.4); BILIRUBIN,TOTAL 1.6 MG/DL (0.3-1.2); BLOOD UREA NITROGEN 21 MG/DL (9-23); CALCIUM LEVEL 9.2 MG/DL (8.3-10.6); CARBON DIOXIDE LEVEL 29 MMOL/L (20-31); CHLORIDE LEVEL 105 MMOL/L (98-107); CREATININE FOR GFR 0.76 MG/DL (0.55-1.30); GLOMERULAR FILTRATION RATE > 60.0 (>39); GLUCOSE, FASTING 84 MG/DL (74-106); SODIUM LEVEL 140 MMOL/L (136-145); TOTAL PROTEIN 7.3 G/DL (5.7-8.2)
[2024-02-22] MEDS ORDERED: ISOVUE-370 76% 100ML VIAL As Ordered ONE (15:23)
[2024-02-22] MEDS ORDERED: METR-265 PO (17:07)
[2024-02-22] MEDS ORDERED: LEVO1TAB40 PO (17:07)
[2024-02-22 17:18] VITALS: BP 127/75; TEMP 98.6; O2SAT 97
== END 2024-02-22 17:24 | disposition home or self-care (01) ==
LOC: M ED 11:57
DX: K57.32 Diverticulitis of large intestine without perforation or abscess without bleeding (principal); Z87.442 Personal history of urinary calculi; Z87.448 Personal history of other diseases of urinary system; Z86.19 Personal history of other infectious and parasitic diseases; Z88.0 Allergy status to penicillin; Z88.2 Allergy status to sulfonamides; Z88.1 Allergy status to other antibiotic agents; Z88.8 Allergy status to other drugs, medicaments and biological substances
CPT/HCPCS: 74177; 80048; 80076; 81001; 83690; 85025; 87086; 99284; Q9967

== ENCOUNTER → 2024-03-05 | Outpatient (REF) | payer MEDICARE, OTHER ==
[~2024-03-05] MED LIST changes: +LEVO1TAB40 PO; +METR-265 PO
== END ==
LOC: M SFHCPLAZ 16:59
PROVIDERS: ATTEND Physician Assistant Medical
DX: R30.0 Dysuria (principal)

== ENCOUNTER → 2024-03-06 | Outpatient (CLI) | payer MEDICARE, OTHER ==
[2024-03-06 12:55] LABS: BASO # 0.1 10^3/uL (0.0-0.2); BASO % 0.9 % (0.0-1.0); EOS # 0.2 10^3/uL (0.0-0.5); EOS % 2.9 % (0.0-3.0); HEMATOCRIT 42.7 % (36.0-47.0); HEMOGLOBIN 14.3 g/dl (12.0-15.5); LYMPH # 1.5 10^3/uL (1.5-5.0); LYMPH % 27.6 % (24.0-44.0); MEAN CORPUSCULAR HEMOGLOBIN 32.5 pg (27.0-33.0); MEAN CORPUSCULAR HGB CONC 33.5 g/dl (32.0-36.5); MONO # 0.5 10^3/uL (0.0-0.8); NEUTROPHILS # 3.3 10^3/uL (1.5-8.5); NEUTROPHILS % 59.4 % (36.0-66.0); PLATELET COUNT, AUTOMATED 240 10^3/uL (150-450); WHITE BLOOD COUNT 5.5 10^3/uL (4.0-10.0)
[2024-03-06 13:06] LABS: HEMOGLOBIN A1c 5.1 % (4.0-6.0)
[2024-03-06 13:08] LABS: CREATININE, URINE 218.9 MG/DL; MAU/CREAT RATIO 26.9 MCG/MG (0.0-30.0)
[2024-03-06 13:10] LABS: C REACTIVE PROTEIN QUANTITATIV < 0.40 MG/DL (<1.0)
[2024-03-06 13:11] LABS: ALBUMIN 3.2 G/DL (3.2-5.2); ALKALINE PHOSPHATASE 62 U/L (46-116); ALT/SGPT 28 U/L (7.0-40); AST/SGOT 43 U/L (<34); BILIRUBIN,TOTAL 0.7 MG/DL (0.3-1.2); BLOOD UREA NITROGEN 14 MG/DL (9-23); CALCIUM LEVEL 8.6 MG/DL (8.3-10.6); CARBON DIOXIDE LEVEL 36 MMOL/L (20-31); CHLORIDE LEVEL 104 MMOL/L (98-107); CHOLESTEROL LEVEL 142 MG/DL (<200); CHOLESTEROL RISK RATIO 3.96 (<5); CREATININE FOR GFR 0.64 MG/DL (0.55-1.30); GLOMERULAR FILTRATION RATE > 60.0 (>39); GLUCOSE, FASTING 83 MG/DL (74-106); HDL CHOLESTEROL 35.8 MG/DL (>40); LDL CHOLESTEROL 79.8 MG/DL (<100); NON-HDL-C 106.2 MG/DL; POTASSIUM SERUM 3.7 MMOL/L (3.5-5.1); SODIUM LEVEL 141 MMOL/L (136-145); TOTAL PROTEIN 6.2 G/DL (5.7-8.2); TRIGLYCERIDES LEVEL 132 MG/DL (<150)
[2024-03-06 13:12] LABS: THYROID STIMULATING HORMONE 2.217 uIU/ML (0.55-4.78); TOTAL 25(OH) VITAMIN D 67.3 NG/ML (20.0-100.0); VITAMIN B12 LEVEL 713 PG/ML (211-911)
[2024-03-06 13:13] LABS: ERYTHROCYTE SEDIMENTATION RATE 43 mm/hr (0-30); FREE T4 1.32 NG/DL (0.89-1.76)
== END ==
LOC: M LAB 11:39
PROVIDERS: ATTEND Internal Medicine Hematology
DX: E78.00 Pure hypercholesterolemia, unspecified (principal); N39.0 Urinary tract infection, site not specified; Z79.899 Other long term (current) drug therapy

== ENCOUNTER → 2024-03-06 | Outpatient (CLI) | payer MEDICARE, OTHER | LOC: M LAB 11:37 | PROVIDERS: ATTEND Physician Assistant Medical | DX: N39.0 Urinary tract infection, site not specified (principal) ==

== ENCOUNTER → 2024-04-08 | Outpatient (CLI) | payer MEDICARE, OTHER ==
[2024-04-08 12:26] LABS: BASO % 0.6 % (0.0-1.0); EOS # 0.1 10^3/uL (0.0-0.5); EOS % 1.1 % (0.0-3.0); HEMATOCRIT 41.6 % (36.0-47.0); HEMOGLOBIN 13.5 g/dl (12.0-15.5); LYMPH # 1.5 10^3/uL (1.5-5.0); LYMPH % 28.9 % (24.0-44.0); MEAN CORPUSCULAR HEMOGLOBIN 32.1 pg (27.0-33.0); MEAN CORPUSCULAR HGB CONC 32.5 g/dl (32.0-36.5); MEAN CORPUSCULAR VOLUME 98.8 fl (80.0-96.0); MONO # 0.4 10^3/uL (0.0-0.8); MONO % 7.1 % (2.0-8.0); NEUTROPHILS # 3.3 10^3/uL (1.5-8.5); NEUTROPHILS % 61.4 % (36.0-66.0); PLATELET COUNT, AUTOMATED 218 10^3/uL (150-450); RED BLOOD COUNT 4.21 10^6/uL (4.00-5.40); WHITE BLOOD COUNT 5.3 10^3/uL (4.0-10.0)
[2024-04-08 12:32] LABS: HEMOGLOBIN A1c 4.9 % (4.0-6.0)
[2024-04-08 12:46] LABS: C REACTIVE PROTEIN QUANTITATIV < 0.40 MG/DL (<1.0)
[2024-04-08 12:46] LABS: CREATININE, URINE 138.4 MG/DL
[2024-04-08 12:47] LABS: MAU/CREAT RATIO 22.3 MCG/MG (0.0-30.0)
[2024-04-08 12:48] LABS: FREE T4 1.22 NG/DL (0.89-1.76); THYROID STIMULATING HORMONE 1.502 uIU/ML (0.55-4.78)
[2024-04-08 12:49] LABS: ALBUMIN 3.5 G/DL (3.2-5.2); ALKALINE PHOSPHATASE 70 U/L (46-116); ALT/SGPT 38 U/L (7.0-40); AST/SGOT 39 U/L (<34); BILIRUBIN,TOTAL 1.1 MG/DL (0.3-1.2); BLOOD UREA NITROGEN 26 MG/DL (9-23); CALCIUM LEVEL 8.8 MG/DL (8.3-10.6); CARBON DIOXIDE LEVEL 30 MMOL/L (20-31); CHLORIDE LEVEL 107 MMOL/L (98-107); CHOLESTEROL LEVEL 167 MG/DL (<200); CHOLESTEROL RISK RATIO 3.24 (<5); CREATININE FOR GFR 0.67 MG/DL (0.55-1.30); GLOMERULAR FILTRATION RATE > 60.0 (>39); GLUCOSE, FASTING 84 MG/DL (74-106); HDL CHOLESTEROL 51.5 MG/DL (>40); LDL CHOLESTEROL 100.9 MG/DL (<100); NON-HDL-C 115.5 MG/DL; POTASSIUM SERUM 4.4 MMOL/L (3.5-5.1); SODIUM LEVEL 142 MMOL/L (136-145); TOTAL PROTEIN 6.9 G/DL (5.7-8.2); TRIGLYCERIDES LEVEL 73 MG/DL (<150); VITAMIN B12 LEVEL 394 PG/ML (211-911)
[2024-04-08 12:51] LABS: ERYTHROCYTE SEDIMENTATION RATE 66 mm/hr (0-30)
[2024-04-08 13:28] LABS: TOTAL 25(OH) VITAMIN D 58.4 NG/ML (20.0-100.0)
== END ==
LOC: M LAB 11:15
PROVIDERS: ATTEND Internal Medicine Hematology
DX: E78.00 Pure hypercholesterolemia, unspecified (principal); Z79.899 Other long term (current) drug therapy

== ENCOUNTER → 2024-04-15 | Outpatient (CLI) | payer MEDICARE, OTHER ==
[2024-04-17 06:37] LABS: PROTEIN, TOTAL SO 7.3 g/dL (6.1-8.1)
[2024-04-17 11:28] LABS: FREE KAPPA LIGHT CHAINS SERUM 24.9 mg/L (3.3-19.4); KAPPA/LAMBDA RATIO SERUM 1.92 (0.26-1.65)
[2024-04-18 06:17] LABS: ALBUMIN SO 4.2 g/dL (3.8-4.8); ALPHA 1 GLOBULINS SO 0.3 g/dL (0.2-0.3); ALPHA 2 GLOBULINS SO 0.7 g/dL (0.5-0.9); BETA 2 GLOBULIN SO 0.4 g/dL (0.2-0.5); BETA GLOBULIN SO 0.4 g/dL (0.4-0.6); GAMMA GLOBULINS SO 1.4 g/dL (0.8-1.7); SPEP IFE ABN PROTEIN BAND 1 0.6 g/dL (NONE DETECTED)
== END ==
LOC: M LAB 14:27
PROVIDERS: ATTEND Internal Medicine Hematology
DX: D47.2 Monoclonal gammopathy (principal)

== ENCOUNTER → 2024-04-19 | Outpatient (REF) | payer MEDICARE, OTHER | LOC: M SFHCPLAZ 12:13 | PROVIDERS: ATTEND Internal Medicine Hematology | DX: D47.2 Monoclonal gammopathy (principal) ==

== ENCOUNTER → 2024-06-17 | Outpatient (CLI) | payer MEDICARE, OTHER ==
[~2024-06-17] MED LIST changes: +CIPR-249 PO; +PROP60CA PO; +ROSU5TAB40 PO
[2024-06-17 10:58] LABS: BASO # 0.1 10^3/uL (0.0-0.2); BASO % 0.7 % (0.0-1.0); EOS # 0.1 10^3/uL (0.0-0.5); EOS % 1.5 % (0.0-3.0); HEMATOCRIT 43.2 % (36.0-47.0); HEMOGLOBIN 14.4 g/dl (12.0-15.5); LYMPH # 1.7 10^3/uL (1.5-5.0); LYMPH % 25.1 % (24.0-44.0); MEAN CORPUSCULAR HEMOGLOBIN 32.9 pg (27.0-33.0); MEAN CORPUSCULAR HGB CONC 33.3 g/dl (32.0-36.5); MEAN CORPUSCULAR VOLUME 98.6 fl (80.0-96.0); MONO # 0.4 10^3/uL (0.0-0.8); MONO % 6.2 % (2.0-8.0); NEUTROPHILS # 4.5 10^3/uL (1.5-8.5); NEUTROPHILS % 66.2 % (36.0-66.0); PLATELET COUNT, AUTOMATED 193 10^3/uL (150-450); RED BLOOD COUNT 4.38 10^6/uL (4.00-5.40); WHITE BLOOD COUNT 6.8 10^3/uL (4.0-10.0)
[2024-06-18 10:13] LABS: PROTEIN, TOTAL SO 7.2 g/dL (6.1-8.1)
[2024-06-18 10:27] LABS: BETA 2 MICROGLOBULIN 1.69 mg/L (< OR = 2.51)
[2024-06-18 11:27] LABS: FREE LAMBDA LIGHT CHAINS SERUM 13.5 mg/L (5.7-26.3); KAPPA/LAMBDA RATIO SERUM 1.63 (0.26-1.65)
[2024-06-19 07:22] LABS: ALBUMIN SO 4.1 g/dL (3.8-4.8); ALPHA 1 GLOBULINS SO 0.3 g/dL (0.2-0.3); ALPHA 2 GLOBULINS SO 0.7 g/dL (0.5-0.9); BETA 2 GLOBULIN SO 0.4 g/dL (0.2-0.5); BETA GLOBULIN SO 0.4 g/dL (0.4-0.6); GAMMA GLOBULINS SO 1.4 g/dL (0.8-1.7); SPEP IFE ABN PROTEIN BAND 1 0.7 g/dL (NONE DETECTED)
== END ==
LOC: M LAB 09:23
PROVIDERS: ATTEND Internal Medicine Hematology
DX: D47.2 Monoclonal gammopathy (principal)

== ENCOUNTER 2024-06-18 14:20 | Emergency (ER) | payer MEDICARE, OTHER ==
[~2024-06-18] VITALS: Ht 157.5 cm; Wt 48.8 kg
[~2024-06-18 14:20] MED LIST changes: -CIPR-249 PO; -PROP60CA PO; -ROSU5TAB40 PO
[2024-06-18 15:40] LABS: BASO % 0.2 % (0.0-1.0); EOS % 0.2 % (0.0-3.0); HEMATOCRIT 40.1 % (36.0-47.0); HEMOGLOBIN 13.4 g/dl (12.0-15.5); LYMPH % 7.9 % (24.0-44.0); MEAN CORPUSCULAR HEMOGLOBIN 32.8 pg (27.0-33.0); MEAN CORPUSCULAR HGB CONC 33.4 g/dl (32.0-36.5); MONO # 0.7 10^3/uL (0.0-0.8); MONO % 5.6 % (2.0-8.0); NEUTROPHILS # 11.3 10^3/uL (1.5-8.5); NEUTROPHILS % 85.6 % (36.0-66.0); PLATELET COUNT, AUTOMATED 185 10^3/uL (150-450); RED BLOOD COUNT 4.09 10^6/uL (4.00-5.40); WHITE BLOOD COUNT 13.2 10^3/uL (4.0-10.0)
[2024-06-18] MEDS ORDERED: ISOVUE-370 76% 100ML VIAL As Ordered ONE (15:42)
[2024-06-18] MEDS ORDERED: KETOROLAC 30 MG/ML 1ML VIAL IV ONE (16:05)
[2024-06-18 16:11] LABS: ALBUMIN 3.6 G/DL (3.2-5.2); BILIRUBIN,DIRECT 0.4 MG/DL (<0.4); BILIRUBIN,TOTAL 1.2 MG/DL (0.3-1.2); TOTAL PROTEIN 6.9 G/DL (5.7-8.2)
[2024-06-18] MEDS ORDERED: CIPR-249 PO (16:44)
[2024-06-18] MEDS ORDERED: METR-265 PO (16:44)
[2024-06-18] MEDS: IBUPROFEN 400MG TAB PO ONE (17:09)
[2024-06-18] MEDS: CIPROFLOXACIN 500MG TABLET PO ONE (17:44)
[2024-06-18] MEDS: metroNIDAZOLE (FLAGYL) 500MG TABLET PO ONE (17:44)
[2024-06-18 18:54] VITALS: BP 124/59; TEMP 99.3; O2SAT 97
[2024-06-19] MEDS ORDERED: ROSU5TAB40 PO (19:40)
[2024-06-19] MEDS ORDERED: PROP60CA PO (19:40)
== END 2024-06-18 18:57 | disposition home or self-care (01) ==
LOC: M ED 14:20
DX: K57.32 Diverticulitis of large intestine without perforation or abscess without bleeding (principal); F41.9 Anxiety disorder, unspecified; Z88.0 Allergy status to penicillin; Z88.2 Allergy status to sulfonamides; Z88.1 Allergy status to other antibiotic agents; Z88.8 Allergy status to other drugs, medicaments and biological substances

== ENCOUNTER 2024-06-19 13:48 | Inpatient (IN) | payer MEDICARE, OTHER ==
[~2024-06-19] VITALS: Ht 157.5 cm; Wt 47.7 kg
[~2024-06-19 13:48] MED LIST changes: +CIPR-249 PO
[2024-06-19] MEDS: FAMOTIDINE 20 MG TAB PO ONE (15:25)
[2024-06-19] MEDS: predniSONE 20 MG TAB PO ONE (15:37)
[2024-06-19 18:05] LABS: BASO % 0.2 % (0.0-1.0); EOS % 0.1 % (0.0-3.0); HEMATOCRIT 43.2 % (36.0-47.0); HEMOGLOBIN 14.7 g/dl (12.0-15.5); LYMPH % 5.8 % (24.0-44.0); MEAN CORPUSCULAR HEMOGLOBIN 32.3 pg (27.0-33.0); MEAN CORPUSCULAR VOLUME 94.9 fl (80.0-96.0); MONO # 0.6 10^3/uL (0.0-0.8); MONO % 3.4 % (2.0-8.0); PLATELET COUNT, AUTOMATED 223 10^3/uL (150-450); RED BLOOD COUNT 4.55 10^6/uL (4.00-5.40); WHITE BLOOD COUNT 16.7 10^3/uL (4.0-10.0)
[2024-06-19 18:21] LABS: BLOOD UREA NITROGEN 22 MG/DL (9-23); CALCIUM LEVEL 9.3 MG/DL (8.3-10.6); CARBON DIOXIDE LEVEL 26 MMOL/L (20-31); CHLORIDE LEVEL 102 MMOL/L (98-107); CREATININE FOR GFR 0.72 MG/DL (0.55-1.30); GLOMERULAR FILTRATION RATE > 60.0 (>32); GLUCOSE, FASTING 86 MG/DL (74-106); POTASSIUM SERUM 4.1 MMOL/L (3.5-5.1); SODIUM LEVEL 134 MMOL/L (136-145)
[2024-06-19] MEDS: ERTAPENEM SODIUM 1 GM in NS MINI-BAG PLUS 50 ML IV ONE (18:29)
[2024-06-19] MEDS ORDERED: PROP60CA PO (19:40)
[2024-06-19] MEDS ORDERED: HOME MED LIST COMPLETE! XX SCH (19:40)
[2024-06-19] MEDS ORDERED: ROSU5TAB40 PO (19:40)
[2024-06-19] MEDS: PROPRANOLOL 60MG LA CAP PO SCH (21:00)
[2024-06-19 22:45] VITALS: BP 128/68; TEMP 97.3; O2SAT 96
[2024-06-19] MEDS ORDERED: PROPRANOLOL 60MG LA CAP PO PRN (23:35)
[2024-06-19] MEDS ORDERED: PILL CUTTER 1 EACH XX PRN (23:55)
[2024-06-20] MEDS: ROSUVASTATIN 10 MG TAB (CRESTOR) PO SCH (00:30)
[2024-06-20] MEDS: CETIRIZINE (ZyrTEC) 10 MG TAB PO SCH (00:54)
[2024-06-20 04:00] VITALS: BP 108/56; TEMP 97.3; O2SAT 96
[2024-06-20 07:38] LABS: C REACTIVE PROTEIN QUANTITATIV 16.6 MG/DL (<1.0)
[2024-06-20 07:45] LABS: PROCALCITONIN 1.71 ng/ml
[2024-06-20] MEDS: HYDROCORTISONE 1% OINTMENT 30GM TOP SCH (09:00)
[2024-06-20] MEDS ORDERED: AQUAPHOR TOP SCH (09:00)
[2024-06-20] MEDS: ENOXAPARIN 40MG/0.4ML SYRINGE (J1650 PER 10MG) SC SCH (09:21)
[2024-06-20] MEDS: ALPRAZolam 0.25 MG TAB PO ONE (10:49)
[2024-06-20] MEDS: predniSONE 20 MG TAB PO SCH (11:38)
[2024-06-20 12:00] VITALS: BP 107/54; TEMP 97.5; O2SAT 96
[2024-06-20] MEDS: ERTAPENEM SODIUM 1 GM in NS MINI-BAG PLUS 50 ML IV SCH (18:09)
[2024-06-20 20:00] VITALS: BP 116/48; TEMP 97.3; O2SAT 98
[2024-06-21 04:00] VITALS: BP 123/79; TEMP 97; O2SAT 94
[2024-06-21 07:49] LABS: BASO % 0.2 % (0.0-1.0); EOS % 0.1 % (0.0-3.0); HEMATOCRIT 38.2 % (36.0-47.0); LYMPH # 1.5 10^3/uL (1.5-5.0); MEAN CORPUSCULAR HEMOGLOBIN 32.1 pg (27.0-33.0); MEAN CORPUSCULAR HGB CONC 33.2 g/dl (32.0-36.5); MEAN CORPUSCULAR VOLUME 96.5 fl (80.0-96.0); MONO # 0.7 10^3/uL (0.0-0.8); MONO % 6.9 % (2.0-8.0); NEUTROPHILS # 7.9 10^3/uL (1.5-8.5); NEUTROPHILS % 77.2 % (36.0-66.0); PLATELET COUNT, AUTOMATED 201 10^3/uL (150-450); RED BLOOD COUNT 3.96 10^6/uL (4.00-5.40); WHITE BLOOD COUNT 10.2 10^3/uL (4.0-10.0)
[2024-06-21 07:52] LABS: HEMOGLOBIN 12.7 g/dl (12.0-15.5)
[2024-06-21 08:07] LABS: BLOOD UREA NITROGEN 19 MG/DL (9-23); CALCIUM LEVEL 8.6 MG/DL (8.3-10.6); CARBON DIOXIDE LEVEL 31 MMOL/L (20-31); CHLORIDE LEVEL 110 MMOL/L (98-107); CREATININE FOR GFR 0.63 MG/DL (0.55-1.30); GLOMERULAR FILTRATION RATE > 60.0 (>32); GLUCOSE, FASTING 88 MG/DL (74-106); MAGNESIUM LEVEL 2.1 MG/DL (1.8-2.4); SODIUM LEVEL 142 MMOL/L (136-145)
[2024-06-21 08:14] LABS: PROCALCITONIN 1.12 ng/ml
[2024-06-21] MEDS: FAMOTIDINE 20 MG TAB PO SCH (10:35)
[2024-06-21] MEDS: CEFDINIR 300 MG CAP (OMNICEF) PO SCH (10:35)
[2024-06-21 12:02] VITALS: BP 148/75; TEMP 97; O2SAT 97
[2024-06-21] MEDS: LORATADINE 10 MG TAB PO SCH (13:33)
[2024-06-21] MEDS: LACTOBACILLUS ACIDOPHILUS CAP (BACID) PO SCH (17:32)
[2024-06-21 20:00] VITALS: BP 139/76; TEMP 96.8; O2SAT 99
[2024-06-21] MEDS: ALPRAZolam 0.25 MG TAB PO ONE (20:28)
[2024-06-22 04:00] VITALS: BP 134/73; TEMP 97; O2SAT 93
[2024-06-22 05:13] LABS: HEMATOCRIT 34.8 % (36.0-47.0); HEMOGLOBIN 11.4 g/dl (12.0-15.5); MEAN CORPUSCULAR HEMOGLOBIN 32.3 pg (27.0-33.0); MEAN CORPUSCULAR HGB CONC 32.8 g/dl (32.0-36.5); MEAN CORPUSCULAR VOLUME 98.6 fl (80.0-96.0); PLATELET COUNT, AUTOMATED 186 10^3/uL (150-450); RED BLOOD COUNT 3.53 10^6/uL (4.00-5.40)
[2024-06-22 07:43] LABS: BLOOD UREA NITROGEN 20 MG/DL (9-23); CARBON DIOXIDE LEVEL 28 MMOL/L (20-31); CHLORIDE LEVEL 110 MMOL/L (98-107); CREATININE FOR GFR 0.58 MG/DL (0.55-1.30); GLOMERULAR FILTRATION RATE > 60.0 (>32); GLUCOSE, FASTING 93 MG/DL (74-106); SODIUM LEVEL 141 MMOL/L (136-145)
[2024-06-22] MEDS: metroNIDAZOLE (FLAGYL) 500MG TABLET PO SCH (08:53)
[2024-06-22] MEDS ORDERED: CEFD300CAP PO (09:58)
[2024-06-22] MEDS ORDERED: RISATAB3 PO (09:58)
[2024-06-22] MEDS ORDERED: CLAR10TA7 PO (09:58)
[2024-06-22] MEDS ORDERED: METR-265 PO (09:58)
[2024-06-22] MEDS ORDERED: FAMO20TA PO (09:58)
[2024-06-22] MEDS ORDERED: PRED10TA2 PO (09:58)
[2024-06-22 12:00] VITALS: BP 145/76; TEMP 97.2; O2SAT 98
== END 2024-06-22 17:02 | disposition home health service (06) | DRG 392 ==
LOC: M ED 13:48 → M ED INP 20:58 → M MSPAV 22:45
PROVIDERS: ADMIT Family Medicine; ATTEND Internal Medicine
DX: K57.32 Diverticulitis of large intestine without perforation or abscess without bleeding (principal); D47.2 Monoclonal gammopathy; F41.9 Anxiety disorder, unspecified; T37.3X5A Adverse effect of other antiprotozoal drugs, initial encounter; Z88.1 Allergy status to other antibiotic agents; Z88.8 Allergy status to other drugs, medicaments and biological substances; E78.5 Hyperlipidemia, unspecified; M06.9 Rheumatoid arthritis, unspecified; K76.89 Other specified diseases of liver; L50.0 Allergic urticaria; Z88.0 Allergy status to penicillin; G47.00 Insomnia, unspecified; Z79.899 Other long term (current) drug therapy; Z88.2 Allergy status to sulfonamides

== ENCOUNTER → 2024-06-27 | Outpatient (REF) | payer MEDICARE, OTHER ==
[~2024-06-27] MED LIST changes: +CEFD300CAP PO; +CLAR10TA7 PO; +FAMO20TA PO; +PRED10TA2 PO; +PROP60CA PO; +RISATAB3 PO; +ROSU5TAB40 PO
[2024-06-27 13:57] LABS: APPEARANCE, URINE CLEAR (CLEAR); BACTERIA, URINE AUTO NEGATIVE (NEGATIVE); BILIRUBIN, URINE AUTO NEGATIVE (NEGATIVE); BLOOD, URINE BLOOD 1+ (NEGATIVE); COLOR, URINE YELLOW (YELLOW); GLUCOSE, URINE (UA) AUTO NEGATIVE (NEGATIVE); KETONE, URINE AUTO NEGATIVE (NEGATIVE); LEUKOCYTE ESTERASE, URINE AUTO 1+ (NEGATIVE); MUCUS, URINE SMALL (NEGATIVE); NITRITE, URINE AUTO NEGATIVE (NEGATIVE); PROTEIN, URINE AUTO NEGATIVE (NEGATIVE); RBC, URINE AUTO 1 /HPF (0-3); SQUAMOUS EPITHELIAL CELL UR AU 0 /HPF (0-6); UROBILINOGEN, URINE AUTO 0.2 mg/dL (0.0-2.0); WBC, URINE AUTO 1 /HPF (0-3)
[2024-06-27 14:01] LABS: CLOSTRIDIUM DIFFICILE PCR NEGATIVE (NEGATIVE)
== END ==
LOC: M SFHCPLAZ 12:38
PROVIDERS: ATTEND Internal Medicine Hematology
DX: N30.00 Acute cystitis without hematuria (principal); A04.72 Enterocolitis due to Clostridium difficile, not specified as recurrent

== ENCOUNTER → 2024-07-16 | Outpatient (CLI) | payer MEDICARE, OTHER ==
[2024-07-16 13:03] LABS: BASO % 0.7 % (0.0-1.0); EOS # 0.1 10^3/uL (0.0-0.5); EOS % 1.5 % (0.0-3.0); HEMATOCRIT 44.1 % (36.0-47.0); HEMOGLOBIN 14.7 g/dl (12.0-15.5); LYMPH # 1.6 10^3/uL (1.5-5.0); LYMPH % 29.5 % (24.0-44.0); MEAN CORPUSCULAR HEMOGLOBIN 32.5 pg (27.0-33.0); MEAN CORPUSCULAR HGB CONC 33.3 g/dl (32.0-36.5); MEAN CORPUSCULAR VOLUME 97.4 fl (80.0-96.0); MONO # 0.4 10^3/uL (0.0-0.8); MONO % 7.1 % (2.0-8.0); NEUTROPHILS # 3.3 10^3/uL (1.5-8.5); NEUTROPHILS % 60.8 % (36.0-66.0); PLATELET COUNT, AUTOMATED 251 10^3/uL (150-450); RED BLOOD COUNT 4.53 10^6/uL (4.00-5.40); WHITE BLOOD COUNT 5.5 10^3/uL (4.0-10.0)
[2024-07-16 13:33] LABS: C REACTIVE PROTEIN QUANTITATIV < 0.40 MG/DL (<1.0); ERYTHROCYTE SEDIMENTATION RATE 27 mm/hr (0-30)
[2024-07-16 13:35] LABS: ALBUMIN 3.5 G/DL (3.2-5.2); ALKALINE PHOSPHATASE 65 U/L (46-116); ALT/SGPT 41 U/L (7.0-40); AST/SGOT 48 U/L (<34); BILIRUBIN,TOTAL 0.9 MG/DL (0.3-1.2); BLOOD UREA NITROGEN 15 MG/DL (9-23); CARBON DIOXIDE LEVEL 34 MMOL/L (20-31); CHLORIDE LEVEL 106 MMOL/L (98-107); CREATININE FOR GFR 0.64 MG/DL (0.55-1.30); GLOMERULAR FILTRATION RATE > 60.0 (>32); GLUCOSE, FASTING 89 MG/DL (74-106); POTASSIUM SERUM 3.8 MMOL/L (3.5-5.1); SODIUM LEVEL 141 MMOL/L (136-145); TOTAL PROTEIN 7.1 G/DL (5.7-8.2)
== END ==
LOC: M LAB 12:35
PROVIDERS: ATTEND Internal Medicine Infectious Disease
DX: K57.32 Diverticulitis of large intestine without perforation or abscess without bleeding (principal)

== ENCOUNTER → 2024-10-17 | Outpatient (REF) | payer MEDICARE, OTHER ==
[~2024-10-17] MED LIST changes: -ROSU5TAB40 PO; +ROSU5TAB49 PO
[2024-10-17 18:08] LABS: BASO # 0.1 10^3/uL (0.0-0.2); BASO % 0.5 % (0.0-1.0); EOS % 0.3 % (0.0-3.0); HEMATOCRIT 45.1 % (36.0-47.0); LYMPH # 2.3 10^3/uL (1.5-5.0); LYMPH % 19.4 % (24.0-44.0); MEAN CORPUSCULAR HEMOGLOBIN 31.9 pg (27.0-33.0); MEAN CORPUSCULAR HGB CONC 33.3 g/dl (32.0-36.5); MONO # 0.8 10^3/uL (0.0-0.8); NEUTROPHILS # 8.4 10^3/uL (1.5-8.5); NEUTROPHILS % 72.5 % (36.0-66.0); PLATELET COUNT, AUTOMATED 264 10^3/uL (150-450); WHITE BLOOD COUNT 11.6 10^3/uL (4.0-10.0)
[2024-10-17 18:33] LABS: ERYTHROCYTE SEDIMENTATION RATE 80 mm/hr (0-30)
[2024-10-17 18:34] LABS: ALBUMIN 3.8 G/DL (3.2-5.2); ALKALINE PHOSPHATASE 91 U/L (35-104); ALT/SGPT 48 U/L (7.0-40); AST/SGOT 45 U/L (<34); BILIRUBIN,TOTAL 1.8 MG/DL (0.3-1.2); BLOOD UREA NITROGEN 23 MG/DL (9-23); C REACTIVE PROTEIN QUANTITATIV 2.51 MG/DL (<1.0); CALCIUM LEVEL 9.5 MG/DL (8.3-10.6); CARBON DIOXIDE LEVEL 28 MMOL/L (20-31); CHLORIDE LEVEL 99 MMOL/L (98-107); CREATININE FOR GFR 0.86 MG/DL (0.55-1.30); GLOMERULAR FILTRATION RATE > 60.0 (>32); GLUCOSE, FASTING 68 MG/DL (74-106); POTASSIUM SERUM 4.9 MMOL/L (3.5-5.1); SODIUM LEVEL 137 MMOL/L (136-145); TOTAL PROTEIN 7.8 G/DL (5.7-8.2)
== END ==
LOC: M SFHCPLAZ 17:31
PROVIDERS: ATTEND Family Medicine
DX: K57.92 Diverticulitis of intestine, part unspecified, without perforation or abscess without bleeding (principal); R59.0 Localized enlarged lymph nodes

== ENCOUNTER → 2024-10-24 | Outpatient (CLI) | payer MEDICARE, OTHER ==
[2024-10-25 09:02] LABS: T P ELECTROPHORESIS SO 7.2 g/dL (6.1-8.1)
[2024-10-25 12:37] LABS: FREE KAPPA LIGHT CHAINS SERUM 20.7 mg/L (3.3-19.4); FREE LAMBDA LIGHT CHAINS SERUM 13.2 mg/L (5.7-26.3); KAPPA/LAMBDA RATIO SERUM 1.57 (0.26-1.65)
== END ==
LOC: M LAB 13:00
PROVIDERS: ATTEND Internal Medicine Hematology
DX: D47.2 Monoclonal gammopathy (principal)

== ENCOUNTER → 2024-10-31 | Outpatient (CLI) | payer MEDICARE, OTHER ==
[~2024-10-31] MED LIST changes: +ISOVUE-370 76% 100ML VIAL As Ordered ONE
== END ==
LOC: M RAD 07:45
PROVIDERS: ATTEND Otolaryngology
DX: R22.1 Localized swelling, mass and lump, neck (principal); K76.89 Other specified diseases of liver
CPT/HCPCS: 36415; 70491; 80076; Q9967

== ENCOUNTER → 2024-10-31 | Outpatient (CLI) | payer MEDICARE, OTHER ==
[~2024-10-31] MED LIST changes: -ISOVUE-370 76% 100ML VIAL As Ordered ONE
[2024-10-31 08:54] LABS: ALBUMIN 3.4 G/DL (3.2-5.2); BILIRUBIN,DIRECT 0.2 MG/DL (<0.4); BILIRUBIN,TOTAL 0.7 MG/DL (0.3-1.2); TOTAL PROTEIN 7.1 G/DL (5.7-8.2)
== END ==
LOC: M LAB 07:47
PROVIDERS: ATTEND Registered Nurse
DX: K76.89 Other specified diseases of liver (principal)

== ENCOUNTER → 2024-11-20 | Outpatient (CLI) | payer MEDICARE, OTHER ==
[2024-11-21 15:11] LABS: VITAMIN D 1,25 DIHYDROXY 71.8 pg/mL (24.8-81.5)
== END ==
LOC: M LAB 13:00
PROVIDERS: ATTEND Student in an Organized Health Care Education/Training Program
DX: F41.9 Anxiety disorder, unspecified (principal); E55.9 Vitamin D deficiency, unspecified

== ENCOUNTER → 2024-12-09 | Outpatient (CLI) | payer MEDICARE, OTHER ==
[~2024-12-09] MED LIST changes: +VANC125C13 PO; -VANC125C3 PO
== END ==
LOC: M LAB 14:44
PROVIDERS: ATTEND Family Medicine
DX: K76.89 Other specified diseases of liver (principal); D47.2 Monoclonal gammopathy; Z53.9 Procedure and treatment not carried out, unspecified reason

== ENCOUNTER → 2024-12-09 | Outpatient (CLI) | payer MEDICARE, OTHER | LOC: M LAB 14:39 | PROVIDERS: ATTEND Registered Nurse | DX: K76.89 Other specified diseases of liver (principal); Z53.9 Procedure and treatment not carried out, unspecified reason ==

== ENCOUNTER → 2024-12-12 | Outpatient (REF) | payer MEDICARE, OTHER ==
[2024-12-12 14:42] LABS: BASO # 0.1 10^3/uL (0.0-0.2); BASO % 0.9 % (0.0-1.0); EOS # 0.2 10^3/uL (0.0-0.5); EOS % 2.5 % (0.0-3.0); HEMATOCRIT 44.9 % (36.0-47.0); HEMOGLOBIN 14.8 g/dl (12.0-15.5); LYMPH % 29.4 % (24.0-44.0); MEAN CORPUSCULAR HEMOGLOBIN 31.2 pg (27.0-33.0); MEAN CORPUSCULAR VOLUME 94.7 fl (80.0-96.0); MONO # 0.5 10^3/uL (0.0-0.8); MONO % 6.6 % (2.0-8.0); NEUTROPHILS # 4.2 10^3/uL (1.5-8.5); NEUTROPHILS % 60.3 % (36.0-66.0); PLATELET COUNT, AUTOMATED 235 10^3/uL (150-450); RED BLOOD COUNT 4.74 10^6/uL (4.00-5.40); WHITE BLOOD COUNT 6.9 10^3/uL (4.0-10.0)
[2024-12-12 14:48] LABS: INR 0.99; PROTHROMBIN TIME 13.4 SECONDS (12.5-14.5)
[2024-12-12 15:01] LABS: ALBUMIN 3.8 G/DL (3.2-5.2); ALKALINE PHOSPHATASE 83 U/L (35-104); ALT/SGPT 57 U/L (7.0-40); AST/SGOT 49 U/L (<34); BILIRUBIN,TOTAL 1.2 MG/DL (0.3-1.2); BLOOD UREA NITROGEN 20 MG/DL (9-23); CALCIUM LEVEL 9.2 MG/DL (8.3-10.6); CARBON DIOXIDE LEVEL 30 MMOL/L (20-31); CHLORIDE LEVEL 105 MMOL/L (98-107); CREATININE FOR GFR 0.76 MG/DL (0.55-1.30); GLOMERULAR FILTRATION RATE > 60.0 (>32); GLUCOSE, FASTING 79 MG/DL (74-106); POTASSIUM SERUM 4.6 MMOL/L (3.5-5.1); SODIUM LEVEL 144 MMOL/L (136-145); TOTAL PROTEIN 7.5 G/DL (5.7-8.2)
[2024-12-13 07:37] LABS: PROTEIN, TOTAL SO 7.4 g/dL (6.1-8.1)
[2024-12-16 07:31] LABS: ALBUMIN SO 4.3 g/dL (3.8-4.8); ALPHA 1 GLOBULINS SO 0.3 g/dL (0.2-0.3); ALPHA 2 GLOBULINS SO 0.7 g/dL (0.5-0.9); BETA 2 GLOBULIN SO 0.4 g/dL (0.2-0.5); BETA GLOBULIN SO 0.4 g/dL (0.4-0.6); GAMMA GLOBULINS SO 1.4 g/dL (0.8-1.7); SPEP IFE ABN PROTEIN BAND 1 0.8 g/dL (NONE DETECTED)
== END ==
LOC: M LAB REF 13:38
PROVIDERS: ATTEND Family Medicine
DX: K76.89 Other specified diseases of liver (principal); D47.2 Monoclonal gammopathy

== ENCOUNTER → 2024-12-12 | Outpatient (REF) | payer MEDICARE, OTHER ==
[2024-12-12 14:57] LABS: ALBUMIN 3.7 G/DL (3.2-5.2); BILIRUBIN,DIRECT 0.3 MG/DL (<0.4); BILIRUBIN,TOTAL 1.2 MG/DL (0.3-1.2); TOTAL PROTEIN 7.3 G/DL (5.7-8.2)
== END ==
LOC: M LAB REF 13:37
PROVIDERS: ATTEND Registered Nurse
DX: K76.89 Other specified diseases of liver (principal)

== ENCOUNTER → 2025-01-21 | Outpatient (CLI) | payer MEDICARE, OTHER ==
[2025-01-21 13:52] LABS: ALBUMIN 3.8 G/DL (3.2-5.2); BILIRUBIN,TOTAL 1.1 MG/DL (0.3-1.2); CALCIUM LEVEL 9.4 MG/DL (8.3-10.6); CREATININE FOR GFR 0.67 MG/DL (0.55-1.30); GLOMERULAR FILTRATION RATE 88.3 (>32); MAGNESIUM LEVEL 1.9 MG/DL (1.8-2.4); POTASSIUM SERUM 4.5 MMOL/L (3.5-5.1); TOTAL PROTEIN 7.5 G/DL (5.7-8.2)
== END ==
LOC: M LAB 12:43
PROVIDERS: ATTEND Student in an Organized Health Care Education/Training Program
DX: R25.2 Cramp and spasm (principal)

== ENCOUNTER → 2025-02-27 | Outpatient (REF) | payer MEDICARE, OTHER ==
[~2025-02-27] MED LIST changes: +CLOB60CR4; +ESTR10TA; +NOXI1TAB PO
[2025-02-27 12:31] LABS: CHOLESTEROL RISK RATIO 3.14 (<5); HDL CHOLESTEROL 52.1 MG/DL (>40); LDL CHOLESTEROL 96.3 MG/DL (<100); NON-HDL-C 111.9 MG/DL
== END ==
LOC: M LABDRAWC 11:55
PROVIDERS: ATTEND Nurse Practitioner
DX: E78.00 Pure hypercholesterolemia, unspecified (principal); Z79.899 Other long term (current) drug therapy

== ENCOUNTER → 2025-04-09 | Outpatient (REF) | payer MEDICARE, OTHER ==
[2025-04-09 13:14] LABS: BASO # 0.1 10^3/uL (0.0-0.2); BASO % 0.8 % (0.0-1.0); EOS # 0.1 10^3/uL (0.0-0.5); EOS % 1.0 % (0.0-3.0); LYMPH # 1.3 10^3/uL (1.5-5.0); LYMPH % 22.1 % (24.0-44.0); MONO # 0.4 10^3/uL (0.0-0.8); MONO % 6.6 % (2.0-8.0); NEUTROPHILS # 4.2 10^3/uL (1.5-8.5); NEUTROPHILS % 69.3 % (36.0-66.0); PLATELET COUNT, AUTOMATED 225 10^3/uL (150-450)
[2025-04-09 13:22] LABS: ALT/SGPT 45.0 U/L (7.0-40); AST/SGOT 54.0 U/L (<34); CALCIUM LEVEL 8.9 MG/DL (8.3-10.6); CARBON DIOXIDE LEVEL 30.0 MMOL/L (20-31); CHLORIDE LEVEL 103.0 MMOL/L (98-107); CHOLESTEROL LEVEL 163.0 MG/DL (<200); CHOLESTEROL RISK RATIO 2.67 (<5); CREATININE FOR GFR 0.7 MG/DL (0.55-1.30); FREE T4 1.26 NG/DL (0.89-1.76); GLOMERULAR FILTRATION RATE 87.4 (>32); LDL CHOLESTEROL 88.5 MG/DL (<100); MAGNESIUM LEVEL 1.9 MG/DL (1.8-2.4); NON-HDL-C 102.1 MG/DL; POTASSIUM SERUM 4.2 MMOL/L (3.5-5.1); SODIUM LEVEL 143.0 MMOL/L (136-145); TRIGLYCERIDES LEVEL 68.0 MG/DL (<150)
[2025-04-09 13:28] LABS: ESTIMATED AVERAGE GLUCOSE 97.0 MG/DL (60-110)
[2025-04-10 19:43] LABS: PROTEIN, TOTAL SO 7.2 g/dL (6.1-8.1)
[2025-04-14 13:55] LABS: FREE KAPPA LIGHT CHAINS SERUM 21.3 mg/L (3.3-19.4); FREE LAMBDA LIGHT CHAINS SERUM 13.2 mg/L (5.7-26.3); KAPPA/LAMBDA RATIO SERUM 1.61 (0.26-1.65)
[2025-04-15 06:25] LABS: ALBUMIN SO 4.2 g/dL (3.8-4.8); ALPHA 1 GLOBULINS SO 0.3 g/dL (0.2-0.3); ALPHA 2 GLOBULINS SO 0.7 g/dL (0.5-0.9); BETA 2 GLOBULIN SO 0.3 g/dL (0.2-0.5); BETA GLOBULIN SO 0.4 g/dL (0.4-0.6); GAMMA GLOBULINS SO 1.4 g/dL (0.8-1.7); SPEP IFE ABN PROTEIN BAND 1 0.7 g/dL (NONE DETECTED)
== END ==
LOC: M SFHCCLAY 08:37
PROVIDERS: ATTEND Student in an Organized Health Care Education/Training Program
DX: D47.2 Monoclonal gammopathy (principal); F41.9 Anxiety disorder, unspecified; E78.00 Pure hypercholesterolemia, unspecified; E83.42 Hypomagnesemia; M81.0 Age-related osteoporosis without current pathological fracture; E55.9 Vitamin D deficiency, unspecified; Z79.899 Other long term (current) drug therapy

== ENCOUNTER → 2025-06-30 | Outpatient (REF) | payer MEDICARE, OTHER ==
[2025-06-30 17:51] LABS: ALT/SGPT 26.0 U/L (7.0-40); AST/SGOT 38.0 U/L (<34); BASO # 0.1 10^3/uL (0.0-0.2); BASO % 1.0 % (0.0-1.0); CALCIUM LEVEL 8.6 MG/DL (8.3-10.6); CARBON DIOXIDE LEVEL 31.0 MMOL/L (20-31); CHLORIDE LEVEL 103.0 MMOL/L (98-107); CREATININE FOR GFR 0.76 MG/DL (0.55-1.30); EOS # 0.0 10^3/uL (0.0-0.5); EOS % 0.5 % (0.0-3.0); GLOMERULAR FILTRATION RATE 78.7 (>32); LYMPH # 1.6 10^3/uL (1.5-5.0); LYMPH % 26.4 % (24.0-44.0); MONO # 0.4 10^3/uL (0.0-0.8); MONO % 6.1 % (2.0-8.0); NEUTROPHILS # 4.0 10^3/uL (1.5-8.5); NEUTROPHILS % 65.8 % (36.0-66.0); PLATELET COUNT, AUTOMATED 231 10^3/uL (150-450); POTASSIUM SERUM 4.1 MMOL/L (3.5-5.1); SODIUM LEVEL 139.0 MMOL/L (136-145)
== END ==
LOC: M LABDRAWC 17:09
PROVIDERS: ATTEND Internal Medicine Medical Oncology
DX: D47.2 Monoclonal gammopathy (principal)

== ENCOUNTER → 2025-07-08 | Outpatient (CLI) | payer MEDICARE, OTHER | LOC: M RAD 14:43 | PROVIDERS: ATTEND Internal Medicine Medical Oncology | DX: D47.2 Monoclonal gammopathy (principal) ==